=== PATIENT | male | born 1950 | race Caucasian/White ===

== ENCOUNTER 2019-02-17 13:13 | Emergency (ER) | payer MEDICARE ==
--- NOTE | 2019-02-17 13:40 | ED Physician Chart ---
ED Chief Complaint/HPI - Patient Information Date Seen:: 02/17/19 Time Seen:: 13:39 Chief Complaint:: Laceration History of Present Illness:: 68 yo male had a laceration to his left 4th finger by a metal sharp at home 30 minutes ago. Pt reported significant bleeding. Allergies:: Allergies Allergy/AdvReac Type Severity Reaction Status Date / Time azithromycin Allergy Severe Verified 02/17/19 13:27 Vitals:: Vital Signs - 8 hr 02/17/19 13:21 Temp 98.4 F HR 69 RR 18 BP 158/109 O2 Sat % 95 ED Review of Systems - Review of Systems General/Constitutional: No fever Skin: Skin lesions, No rash Head: No headache Eyes: No pain ENT: No earache Neck: No neck pain Cardio Vascular: No chest pain Pulmonary: No SOB GI: No nausea, No vomiting Musculoskeletal: No bone or joint pain Neurological: No focal symptoms ED Past Medical History - Past Medical History Past Medical History: HTN, Thyroid disorder Social History: Non Smoker, No Alcohol, No Drug Use Surgical History: None Family Medical History - Family Member Mother History Unknown: Yes ED Physical Exam - Physical Examination General/Constitutional: Awake, Alert Head: Atraumatic Eyes: PERRL Skin: No ecchymosis ENMT: Nasal exam nl Neck: No nuchal rigidity Respiratory: No Wheeze/Rhonchi/Rales Cardio Vascular: RRR, No murmur, gallop, rubs, NL S1 S2 GI: No tenderness/rebounding/guarding Other Extremities comments:: Left 4th finger ulnar side laceration 5 cm in length Neuro/Psych: Alert/oriented, Normal motor strength, No focal deficits ED Assessment - Assessment General Assessment: Left 4th finger laceration Assessment/Comments:: Laceration repair TDap IM Keflex 500 mg PO Location:: Left 4th finger ulnar side of the distal phalange. Laceration Type:: Simple Wound Length: 5 cm Prep/Irrigation:: Saline, hydrogen peroxide and betadine Comments: After cleaning, local anesthesia was achieved by 1% lidocaine deposited at the ring of the proximal 4th finger. 5.0 Prolene was used to close the laceration with 4 horizontal mattress sutures. Bacitracin topical was applied. Pt tolerated the procedure well. ED Septic Shock - . Is Septic Shock (SBP<90, OR Lactate>4 mmol\L) present?: No - <6hrs of presentation: Vital Signs: Vital Signs - 8 hr 02/17/19 13:21 Temp 98.4 F HR 69 RR 18 BP 158/109 O2 Sat % 95 ED Reassessment (Disposition) - Reassessment Reassessment Condition:: Improved - Aftercare/Follow up Instructions Notes:: Sutures to be removed in 7 days Medication Prescribed:: Keflex 500 mg PO bid x 5 days - Patient Disposition Discharge/Transfer:: Home
[2019-02-17] MEDS ORDERED: Bacitracin pkt 1 gm Pkt TP ONE (14:16)
[2019-02-17] MEDS: Bacitracin pkt 1 gm Pkt TP STA (14:39)
== END 2019-02-17 14:55 | disposition home or self-care (01) ==
LOC: ER 13:13
DX: S61.215A Laceration without foreign body of left ring finger without damage to nail, initial encounter (principal); I10 Essential (primary) hypertension; E07.9 Disorder of thyroid, unspecified; Z88.1 Allergy status to other antibiotic agents; W26.8XXA Contact with other sharp object(s), not elsewhere classified, initial encounter; Y93.89 Activity, other specified; Y92.009 Unspecified place in unspecified non-institutional (private) residence as the place of occurrence of the external cause; Y99.8 Other external cause status
CPT/HCPCS: 12002; A4217; J2001; Z7502; Z7610

== ENCOUNTER 2019-02-26 11:57 | Emergency (ER) | payer MEDICARE ==
--- NOTE | 2019-02-26 12:26 | ED Physician Chart ---
ED Chief Complaint/HPI - Patient Information Date Seen:: 02/26/19 Time Seen:: 12:15 Chief Complaint:: suture removal History of Present Illness:: this is a 68 yo male who is here for sutures to be removed from a laceration of his left fourth finger. Allergies:: Allergies Allergy/AdvReac Type Severity Reaction Status Date / Time azithromycin Allergy Severe Verified 02/17/19 13:27 Vitals:: Vital Signs - 8 hr 02/26/19 12:12 Temp 97.7 F HR 69 RR 19 BP 139/89 O2 Sat % 97 Historian:: Patient Review:: Nurse's Note Reviewed ED Review of Systems - Review of Systems General/Constitutional: No fever, No chills, No weight loss, No weakness, No diaphoresis, No edema, No loss of appetite Skin: No skin lesions, No rash, No bruising, Other (suture removal) Head: No headache, No light-headedness Eyes: No loss of vision, No pain, No diplopia ENT: No earache, No nasal drainage, No sore throat, No tinnitus Neck: No neck pain, No swelling, No thyromegaly, No stiffness, No mass noted Cardio Vascular: No chest pain, No palpitations, No PND, No orthopnea, No edema Pulmonary: No SOB, No cough, No sputum, No wheezing GI: No nausea, No vomiting, No diarrhea, No pain, No melena, No hematochezia, No constipation, No hematemesis G/U: No dysuria, No frequency, No hematuria Musculoskeletal: No bone or joint pain, No back pain, No muscle pain Endocrine: No polyuria, No polydipsia Psychiatric: No prior psych history, No depression, No anxiety, No suicidal ideation Hematopoietic: No bruising, No lymphadenopathy Allergic/Immuno: No urticaria, No angioedema Neurological: No syncope, No focal symptoms, No weakness, No paresthesia, No headache, No seizure, No dizziness, No confusion, No vertigo ED Past Medical History - Past Medical History Obtainable: Yes Past Medical History: Thyroid disorder Family History: None Social History: Non Smoker, No Alcohol, No Drug Use, Employed Surgical History: None Psychiatricy History: None Medication: Reviewed Family Medical History - Family Member Mother History Unknown: Yes ED Physical Exam - Physical Examination General/Constitutional: Awake, Well-developed, well-nourished, Alert, No distress, GCS 15, Non-toxic appearing, Ambulatory Head: Atraumatic Eyes: Lids, conjuctiva normal, PERRL, EOMI Skin: Nl inspection, No rash, No skin lesions, No ecchymosis, Well hydrated, No lymphadenopathy ENMT: External ears, nose nl, Nasal exam nl, Lips, teeth, gums nl Neck: Nontender, Full ROM w/o pain, No JVD, No nuchal rigidity, No bruit, No mass, No stridor Respiratory: Nl effort/Exclusion, Clear to Auscultation, No Wheeze/Rhonchi/Rales Cardio Vascular: RRR, No murmur, gallop, rubs, NL S1 S2 GI: No tenderness/rebounding/guarding, No organomegaly, No hernia, Normal BS's, Nondistended, No mass/bruits, No McBurney tenderness : No CVA tenderness Extremities: No tenderness or effusion, Full ROM, normal strength in all extremities, No edema, Normal digits & nails Other Extremities comments:: healing laceration of the left fourth finger with no sign of infection. Neuro/Psych: Alert/oriented, DTR's symmetric, Normal sensory exam, Normal motor strength, Judgement/insight normal, Mood normal, Normal gait, No focal deficits Misc: Normal back, No paraspinal tenderness ED Labs/Radiology/EKG Results - Lab Results Results: sutures removed with a number 11 blade with difficulty. ED Assessment - Assessment General Assessment: healing suture of the left fourth finger ED Septic Shock - . Is Septic Shock (SBP<90, OR Lactate>4 mmol\L) present?: No - <6hrs of presentation: Vital Signs: Vital Signs - 8 hr 02/26/19 12:12 Temp 97.7 F HR 69 RR 19 BP 139/89 O2 Sat % 97 ED Reassessment (Disposition) - Reassessment Reassessment Condition:: Improved - Diagnosis Diagnosis:: suture removal of the left fourth finger
== END 2019-02-26 12:34 | disposition home or self-care (01) ==
LOC: ER 11:57
DX: S61.215D Laceration without foreign body of left ring finger without damage to nail, subsequent encounter (principal); E07.9 Disorder of thyroid, unspecified; Z88.1 Allergy status to other antibiotic agents; X58.XXXD Exposure to other specified factors, subsequent encounter
CPT/HCPCS: Z7502